=== PATIENT | female | born 1975 | race Caucasian/White ===

== ENCOUNTER 2018-05-07 22:46 | Emergency (ER) | payer OTHER ==
[2018-05-07] MEDS ORDERED: NS 1,000 ML IV ONE (23:02)
--- NOTE | 2018-05-07 23:02 | EDPHY ---
H & P Stated Complaint: mid chest pressure started 1hr DIRECTORY OPERATOR Time Seen by Provider: 05/07/18 23:02 HPI/ROS: HPI CHIEF COMPLAINT: Chest discomfort. HISTORY OF PRESENT ILLNESS: 42-year-old female, otherwise healthy no significant medical history presents emergency room chest discomfort. Patient states that she had a very stressful night around 6:00 p.m. Her [place] off in the [place], she spent 20 min running very hard and very fast after her dog. During this run she felt chest discomfort. Also felt short of breath and began coughing vigorously. States she was able to get her dog back went home took a shower however continued to have chest discomfort. Describes it as a feeling as she cannot take a deep breath in, does have a cough when she takes deep breath in, complains of chest tightness. This was at 6:00 a.m. It Is now 11:00 a.m. At night. She has had discomfort for over 3 hr. She denies wheezing, denies productive cough, main complaint right now chest discomfort. Tightness. Denies any focal numbness or tingling. She reports to me that she does not typically run at all. She ran for 20 min vigorously hard. This is at high [place] in [place] she lives. Past Medical History: Denies significant medical history Past Surgical History: Denies significant surgical history Social History: Occasional alcohol use, denies drugs or tobacco. Works at [email or web address]. Family History: Noncontributory ROS REVIEW OF SYSTEMS: 10 Systems were reviewed and negative with the exception of the elements mentioned in the history of present illness. Exam Constitutional nontoxic no acute distress triage nursing summary reviewed, vital signs reviewed, awake/alert. Eyes normal conjunctivae and sclera, EOMI, PERRLA. HENT normal inspection, atraumatic, moist mucus membranes, no epistaxis, neck supple/ no meningismus, no raccoon eyes. Respiratory clear cough on exam no significant wheezing, bilateral breath sounds, clear to auscultation bilaterally, normal breath sounds, no respiratory distress, no wheezing. Cardiovascular rate normal, regular rhythm, no murmur, no edema, distal pulses normal. Gastrointestinal soft, non-tender, no rebound, no guarding, normal bowel sounds, no distension, no pulsatile mass. Genitourinary no CVA tenderness. Musculoskeletal no midline vertebral tenderness, full range of motion, no calf swelling, no tenderness of extremities, no meningismus, good pulses, neurovascularly intact. Skin pink, warm, & dry, no rash, skin atraumatic. Neurologic awake, alert and oriented x 3, AAOx3, moves all 4 extremities equally, motor intact, sensory intact, CN II-XII intact, normal cerebellar, normal vision, normal speech. Psychiatric normal mood/affect. Heme/Lymph/Immune no lymphadenopathy. Differential Diagnosis: Differential diagnosis includes but is not limited to: ACS, atypical chest pain, pneumothorax, pneumonia, pulmonary embolism, aortic dissection, congestive heart failure, tumor, musculoskeletal pain, esophageal pain, GERD, peptic ulcer disease, pancreatitis Medical Decision Making: Plan for this patient IV establishment, EKG, chest x- ray, cardiac cath rn, troponin, D-dimer, re-evaluation Re-evaluation: EKG interpretation by me on record in [facility] system. Impression time of EKG 2306, sinus tach [address] elevation. EKG interpretation by me on record in [facility] system. Impression time of EKG 3:35 a.m. This is a repeat EKG sinus rhythm rate of 81 without any signs of acute ischemia no ST elevation or ST depression no T-wave abnormalities. No prolonged intervals. Unremarkable EKG 2nd troponin pending at this time 3:50 a.m.. HEART Score for Major Cardiac Events from [email or web address] on 05/08/2018 All calculations should be rechecked by clinician prior to use RESULT SUMMARY: 0 points Low Score (0-3 points) Risk of MACE of 0.9-1.7%. INPUTS: History > 0 = Slightly suspicious EKG > 0 = Normal Age > 0 = <45 Risk factors > 0 = No known risk factors Initial troponin > 0 = normal limit EKG interpretation by me on record in [facility] system. Impression time of EKG this is a repeat EKG 6:11 a.m., sinus rhythm rate of 87 without any signs of acute ischemia. Unremarkable EKG. The patient has a very low heart score. The patient has had serial EKGs and serial troponins here in emergency room that have been normal. I do not feel that she is having acute coronary syndrome She has been resting for multiple hours emergency without any chest pain or shortness of breath. She feels much better. She would like to go home. I do recommend she follows up with her primary care doctor and Cardiology for outpatient evaluation She does also understand return emergency room if develops worsening chest pain shortness of breath At this time she has no chest pain EKG x2 negative for acute disease Troponin x2 negative. No significant cardiovascular risk factors. 0636: Patient re-evaluated resting comfortably. No chest pain or shortness of breath. Serial EKGs nonischemic. Negative troponins. Patient has no chest pain feels much better good air movement on exam stable vital signs of like to go home. Return precautions discussed Recommend close follow-up with primary care doctor and Cardiology outpatient evaluation Return if worsening symptoms Patient has agreed for all this. Joint decision making was obtained with her about cardiac evaluation. Source: Patient - Personal History LMP (Females 10-55): 22-28 Days Ago Current Tetanus/Diphtheria Vaccine: Yes Current Tetanus Diphtheria and Acellular Pertussis (TDAP): Yes - Medical/Surgical History Hx Asthma: No Hx Chronic Respiratory Disease: No Hx Diabetes: No Hx Cardiac Disease: No Hx Renal Disease: No Hx Cirrhosis: No Hx Alcoholism: No Hx HIV/AIDS: No Hx Splenectomy or Spleen Trauma: No Other PMH: ovarian cyst surgery, appy out - Social History Smoking Status: Never smoked Constitutional: Initial Vital Signs Temperature (C) 37.0 C 05/07/18 22:51 Heart Rate 108 H 05/07/18 22:51 Respiratory Rate 16 05/07/18 22:51 Blood Pressure 158/82 H 05/07/18 22:51 O2 Sat (%) 96 05/07/18 22:51 O2 Delivery Mode Room Air Allergies/Adverse Reactions: No Known Allergies Allergy (Verified 05/07/18 22:53) Home Medications: Medication Instructions Recorded NK [No Known Home Meds] 06/19/13 Medical Decision Making - Diagnostics Imaging Results: Imaging Impressions Chest X-Ray 05/07/18 23:02 Impression: Negative. - Data Points Laboratory Results: Laboratory Results 05/07/18 23:15 05/07/18 23:15 05/08/18 05/07/18 05/07/18 03:40 23:15 23:15 WBC RBC Hgb Hct MCV MCH MCHC RDW Plt Count MPV Neut % (Auto) Lymph % (Auto) Carter % (Auto) Eos % (Auto) Baso % (Auto) Nucleat RBC Rel Count Absolute Neuts (auto) Absolute Lymphs (auto) Absolute Monos (auto) Absolute Eos (auto) Absolute Basos (auto) Absolute Nucleated RBC Immature Gran % Immature Gran # PT INR APTT D-Dimer Sodium 139 mEq/L mEq/L (135-145) Potassium 3.8 mEq/L mEq/L (3.5-5.2) Chloride 107 mEq/L mEq/L (97-110) Carbon Dioxide 23 mEq/l mEq/l (22-31) Anion Gap 9 mEq/L mEq/L (6-14) BUN 20 mg/dL mg/dL (7-23) Creatinine 1.0 mg/dL mg/dL (0.6-1.0) Estimated GFR 60 Glucose 93 mg/dL mg/dL (70-100) Calcium 9.4 mg/dL mg/dL (8.5-10.4) Magnesium 2.0 mg/dL mg/dL (1.6-2.3) Total Bilirubin 0.4 mg/dL mg/dL (0.1-1.4) Conjugated Bilirubin 0.1 mg/dL mg/dL (0.0-0.5) Unconjugated Bilirubin 0.3 mg/dL mg/dL (0.0-1.1) AST 23 IU/L IU/L (14-46) ALT 21 IU/L IU/L (9-52) Alkaline Phosphatase 49 IU/L IU/L (38-126) POC Troponin I 0.00 ng/mL ng/mL (0.00-0.08) NT-Pro-B Natriuret Pep 61 pg/mL pg/mL (0-125) Total Protein 7.4 g/dL g/dL (6.3-8.2) Albumin 4.5 g/dL g/dL (3.5-5.0) Lipase 122 IU/L IU/L (23-300) Beta HCG, Qual NEGATIVE 05/07/18 05/07/18 05/07/18 23:15 23:15 23:14 WBC 15.42 10^3/uL H 10^3/uL (3.80-9.50) RBC 4.43 10^6/uL 10^6/uL (4.18-5.33) Hgb 14.8 g/dL g/dL (12.6-16.3) Hct 42.9 % % (38.0-47.0) MCV 96.8 fL fL (81.5-99.8) MCH 33.4 pg pg (27.9-34.1) MCHC 34.5 g/dL g/dL (32.4-36.7) RDW 12.6 % % (11.5-15.2) Plt Count 242 10^3/uL 10^3/uL (150-400) MPV 10.4 fL fL (8.7-11.7) Neut % (Auto) 81.7 % H % (39.3-74.2) Lymph % (Auto) 12.1 % L % (15.0-45.0) Carter % (Auto) 5.5 % % (4.5-13.0) Eos % (Auto) 0.1 % L % (0.6-7.6) Baso % (Auto) 0.3 % % (0.3-1.7) Nucleat RBC Rel Count 0.0 % % (0.0-0.2) Absolute Neuts (auto) 12.59 10^3/uL H 10^3/uL (1.70-6.50) Absolute Lymphs (auto) 1.87 10^3/uL 10^3/uL (1.00-3.00) Absolute Monos (auto) 0.85 10^3/uL H 10^3/uL (0.30-0.80) Absolute Eos (auto) 0.02 10^3/uL L 10^3/uL (0.03-0.40) Absolute Basos (auto) 0.05 10^3/uL 10^3/uL (0.02-0.10) Absolute Nucleated RBC 0.00 10^3/uL 10^3/uL (0-0.01) Immature Gran % 0.3 % % (0.0-1.1) Immature Gran # 0.04 10^3/uL 10^3/uL (0.00-0.10) PT 12.4 SEC SEC (12.0-15.0) INR 0.90 (0.83-1.16) APTT 24.5 SEC SEC (23.0-38.0) D-Dimer 0.28 ug/mLFEU ug/mLFEU (0.00-0.50) Sodium Potassium Chloride Carbon Dioxide Anion Gap BUN Creatinine Estimated GFR Glucose Calcium Magnesium Total Bilirubin Conjugated Bilirubin Unconjugated Bilirubin AST ALT Alkaline Phosphatase POC Troponin I 0.00 ng/mL ng/mL (0.00-0.08) NT-Pro-B Natriuret Pep Total Protein Albumin Lipase Beta HCG, Qual Medications Given: Discontinued Medications Albuterol/Ipratropium (Duoneb) 3 ml IH EDNOW ONE Stop: 05/08/18 01:08 Last Admin: 05/08/18 01:11 Dose: 3 ml Aspirin Buffered (Aspirin Ec) 325 mg PO EDNOW ONE Stop: 05/07/18 23:15 Last Admin: 05/07/18 23:28 Dose: 325 mg Sodium Chloride (Ns) 1,000 mls @ 0 mls/hr IV EDNOW ONE; Wide Open PRN Reason: Protocol Stop: 05/07/18 23:03 Last Admin: 05/07/18 23:27 Dose: 1,000 mls Point of Care Test Results: Chemistry 05/08/18 05/07/18 03:40 23:14 POC Troponin I 0.00 ng/mL ng/mL 0.00 ng/mL ng/mL (0.00-0.08) (0.00-0.08) Departure - Departure Disposition: Home, Routine, Self-Care Clinical Impression: Chest pain Qualifiers: Chest pain type: chest pain on breathing Qualified Code(s): R07.1 - Chest pain on breathing; R07.81 - Pleurodynia Condition: Good Instructions: Chest Pain (ED) Additional Instructions: 1. Please return emergency room if you have further or worsening chest pain 2. Follow up with Cardiology Referrals: ZAN HOBSON [Primary Care Provider] - As per Instructions Jw Acharya MD [Medical Doctor] - As per Instructions
[2018-05-07] MEDS ORDERED: ASPIRIN EC 325 MG TAB PO ONE (23:14)
[2018-05-07 23:22] LABS: PLATELET COUNT 242 10^3/uL (150-400)
[2018-05-07 23:32] LABS: INR 0.9 (0.83-1.16); PROTIME(PATIENT) 12.4 SEC (12.0-15.0)
[2018-05-08] MEDS ORDERED: IPRATROPIUM/ALBUTEROL 3 ML DEYVIAL IH ONE (01:07)
[2018-05-08 06:16] VITALS: BP 117/71
--- NOTE | 2018-05-08 07:30 | CPEKG ---
Test Reason : OPEN Blood Pressure : / mmHG Vent. Rate : 087 BPM Atrial Rate : 087 BPM P-R Int : 131 ms QRS Dur : 076 ms QT Int : 376 ms P-R-T Axes : 061 057 053 degrees QTc Int : 453 ms Sinus rhythm Confirmed by Star Gilbert ([id number]) on 05/08/2018 7:29:55 AM Referred By: Confirmed By:Star Gilbert
--- NOTE | 2018-05-08 07:30 | CPEKG ---
Test Reason : OPEN Blood Pressure : / mmHG Vent. Rate : 113 BPM Atrial Rate : 114 BPM P-R Int : 128 ms QRS Dur : 086 ms QT Int : 334 ms P-R-T Axes : 064 064 018 degrees QTc Int : 458 ms Sinus tachycardia Minimal ST depression, anterolateral leads Confirmed by Star Gilbert ([id number]) on 05/08/2018 7:29:54 AM Referred By: Confirmed By:Star Gilbert
--- NOTE | 2018-05-08 07:30 | CPEKG ---
Test Reason : OPEN Blood Pressure : / mmHG Vent. Rate : 081 BPM Atrial Rate : 081 BPM P-R Int : 135 ms QRS Dur : 082 ms QT Int : 378 ms P-R-T Axes : 064 059 045 degrees QTc Int : 439 ms Sinus rhythm Confirmed by Star Gilbert ([id number]) on 05/08/2018 7:29:55 AM Referred By: Confirmed By:Star Gilbert
== END 2018-05-08 07:02 | disposition home or self-care (01) ==
DX: R07.1 Chest pain on breathing (principal); R07.81 Pleurodynia; E86.9 Volume depletion, unspecified
CPT/HCPCS: 84484-ER

== ENCOUNTER → 2018-07-04 | Outpatient (CLI) | payer OTHER | LOC: FIMAGING 13:41 | PROVIDERS: ATTEND Family Medicine | DX: Z12.31 Encounter for screening mammogram for malignant neoplasm of breast (principal) ==

== ENCOUNTER 2018-09-22 23:20 | Emergency (ER) | payer OTHER | END 2018-09-23 00:07 | disposition home or self-care (01) ==